=== PATIENT | female | born 1985 | race Caucasian/White ===

== ENCOUNTER 2018-07-12 12:13 | Emergency (ER) | payer MEDICAID | END 2018-07-12 17:22 | disposition home or self-care (01) | LOC: FTE 12:13 | DX: O99.512 Diseases of the respiratory system complicating pregnancy, second trimester (principal); J01.90 Acute sinusitis, unspecified; Z3A.28 28 weeks gestation of pregnancy | CPT/HCPCS: 99283; Z7502 ==

== ENCOUNTER 2018-07-12 12:55 | Outpatient (CLI) | payer MEDICAID | END 2018-07-12 15:00 | disposition home or self-care (01) | LOC: OBT 12:55 → L-D 12:55 → OBT 15:00 | DX: O26.893 Other specified pregnancy related conditions, third trimester (principal); R05 Cough; R09.81 Nasal congestion; K08.89 Other specified disorders of teeth and supporting structures; Z3A.28 28 weeks gestation of pregnancy | CPT/HCPCS: 76815 ==

== ENCOUNTER 2018-09-21 17:21 | Inpatient (IN) | payer MEDICAID ==
[2018-09-21] MEDS ORDERED: CARBOPROST 250 MCG INJ IM (17:30)
[2018-09-21] MEDS ORDERED: MISOPROSTOL 200 MCG TAB PR (17:30)
[2018-09-21] MEDS ORDERED: METHYLERGONOVINE 0.2 MG INJ IM (17:30)
[2018-09-21] MEDS: LACTATED RINGER'S 1,000 ML IV ×2 (18:16→19:11)
[2018-09-21 18:45] LABS: ADD MAN DIFF? NO
[2018-09-21 18:49] LABS: BASOPHILS % 0.4 % (0.0-2.0); EOSINOPHILS % 0.3 % (0.0-7.0); HEMATOCRIT 39.8 % (37.0-47.0); HEMOGLOBIN 13.4 g/dl (12.0-16.0); LYMPHOCYTES # 1.9 10^3/ul (0.8-2.9); LYMPHOCYTES % 25.9 % (15.0-51.0); MEAN CORPUSCULAR HEMOGLOBIN 31.9 pg (29.0-33.0); MEAN CORPUSCULAR HGB CONC 33.7 g/dl (32.0-37.0); MEAN CORPUSCULAR VOLUME 94.8 fl (82.0-101.0); MEAN PLATELET VOLUME 12.5 fl (7.4-10.4); MONOCYTE # 0.5 10^3/ul (0.3-0.9); MONOCYTES % 6.4 % (0.0-11.0); NEUTROPHIL # 4.9 10^3/ul (1.6-7.5); NEUTROPHILS % 66.5 % (39.0-77.0); PLATELET COUNT 172 10^3/UL (140-415); RED CELL DISTRIBUTION WIDTH 13.7 % (11.5-14.5)
[2018-09-21 18:49] LABS: WHITE BLOOD COUNT 7.4 10^3/ul (4.8-10.8)
[2018-09-21 19:08] LABS: PROTIME 12.3 Sec (11.9-14.9)
[2018-09-21 19:09] LABS: PARTIAL THROMBOPLASTIN TIME 27.7 Sec (23.0-35.0)
[2018-09-21] MEDS ORDERED: OXYTOCIN 30 UNITS/LR 500 ML IV (20:40)
[2018-09-21] MEDS ORDERED: METOCLOPRAMIDE 10 MG INJ (20:41)
[2018-09-21] MEDS ORDERED: OXYTOCIN 10 UNIT INJ ×2 (20:41→20:53)
[2018-09-21] MEDS ORDERED: ONDANSETRON 4 MG INJ (20:41)
[2018-09-21] MEDS ORDERED: morphine SULFATE/PF (10 MG/10 ML) INJ (20:41)
[2018-09-21] MEDS ORDERED: EPHEDrine 25 MG/5 ML SYG (20:53)
[2018-09-21] MEDS ORDERED: NALOXONE (0.4 MG/ML) INJ IV (23:00)
[2018-09-21] MEDS ORDERED: EPHEDrine SULFATE 50 MG/5 ML SYG IV (23:00)
[2018-09-21] MEDS ORDERED: morphine 2 MG INJ IV ×2 (23:00)
[2018-09-21] MEDS ORDERED: ONDANSETRON 4 MG INJ IV (23:00)
[2018-09-21] MEDS ORDERED: DIPHENHYDRAMINE 50 MG INJ IV (23:00)
[2018-09-21] MEDS: morphine SULFATE/PF (10 MG/10 ML) INJ SPINAL (23:06)
[2018-09-21] MEDS: CEFAZOLIN 2 GM/50 ML (PMX) 50 ML IVPB (23:06)
[2018-09-21] MEDS: KETOROLAC 30 MG INJ IV (23:12)
[2018-09-21] MEDS: OXYTOCIN 30 UNITS/LR 500 ML IV (23:48)
[2018-09-22] MEDS: DEXTROSE 5%-LR 1,000 ML IV ×3 (00:15→16:15)
[2018-09-22] MEDS ORDERED: CARBOPROST 250 MCG INJ IM (00:30)
[2018-09-22] MEDS ORDERED: METHYLERGONOVINE 0.2 MG INJ IM (00:30)
[2018-09-22] MEDS ORDERED: METHYLERGONOVINE 0.2 MG TAB PO (00:30)
[2018-09-22] MEDS ORDERED: LANOLIN HPA 1 PKT TOP (00:30)
[2018-09-22] MEDS ORDERED: MISOPROSTOL 200 MCG TAB PR (00:30)
[2018-09-22] MEDS ORDERED: OXYTOCIN 30 UNITS/LR 500 ML IV (00:30)
[2018-09-22] MEDS: OXYTOCIN 30 UNITS/LR 500 ML IV (00:59)
[2018-09-22] MEDS: KETOROLAC 30 MG INJ IV ×3 (05:52→20:06)
[2018-09-22 07:51] LABS: ADD MAN DIFF? NO
[2018-09-22 08:01] LABS: WHITE BLOOD COUNT 8.4 10^3/ul (4.8-10.8)
[2018-09-22 08:01] LABS: BASOPHILS % 0.2 % (0.0-2.0); EOSINOPHILS % 0.2 % (0.0-7.0); HEMATOCRIT 35.7 % (37.0-47.0); HEMOGLOBIN 11.8 g/dl (12.0-16.0); LYMPHOCYTES # 1.3 10^3/ul (0.8-2.9); LYMPHOCYTES % 15.9 % (15.0-51.0); MEAN CORPUSCULAR HEMOGLOBIN 31.3 pg (29.0-33.0); MEAN CORPUSCULAR HGB CONC 33.1 g/dl (32.0-37.0); MEAN CORPUSCULAR VOLUME 94.7 fl (82.0-101.0); MONOCYTE # 0.5 10^3/ul (0.3-0.9); MONOCYTES % 5.6 % (0.0-11.0); NEUTROPHIL # 6.6 10^3/ul (1.6-7.5); NEUTROPHILS % 77.6 % (39.0-77.0); PLATELET COUNT 147 10^3/UL (140-415); RED BLOOD COUNT 3.77 10^6/ul (4.20-5.40); RED CELL DISTRIBUTION WIDTH 13.8 % (11.5-14.5)
[2018-09-22] MEDS: SENNA/DOCUSATE NA (8.6MG/50MG) TAB PO ×2 (09:23→20:07)
[2018-09-22] MEDS ORDERED: DIPHTH/TET/ACEL PERTUSS (ADULT) 0.5 ML VIAL IM* (11:00)
[2018-09-22] MEDS: LACTATED RINGER'S 1,000 ML IV ×2 (12:02→16:50)
[2018-09-22] MEDS: HYDROCODONE/APAP (5/325) TAB GTB ×2 (14:00→22:37)
[2018-09-22 15:03] LABS: RAPID PLASMA REAGIN NONREACTIVE (NR)
[2018-09-22 15:05] LABS: RAPID PLASMA REAGIN NONREACTIVE (NR)
[2018-09-23] MEDS: DEXTROSE 5%-LR 1,000 ML IV (00:15)
[2018-09-23] MEDS: LACTATED RINGER'S 1,000 ML IV (01:29)
[2018-09-23] MEDS: HYDROCODONE/APAP (5/325) TAB GTB ×3 (05:05→21:59)
[2018-09-23] MEDS: IBUPROFEN 800 MG TAB PO ×3 (05:06→21:59)
[2018-09-23] MEDS: SENNA/DOCUSATE NA (8.6MG/50MG) TAB PO ×2 (08:16→20:52)
[2018-09-23] MEDS: HYDROCODONE/APAP (5/325) TAB NGT (08:17)
[2018-09-23] MEDS: DIPHTH/TET/ACEL PERTUSS (ADULT) 0.5 ML VIAL IM* (10:36)
[2018-09-23] MEDS: MEASLES,MUMPS,RUBELLA VACCINE INJ SC* (10:37)
[2018-09-23] MEDS: MAGNESIUM HYDROXIDE 30ML CUP PO (20:52)
[2018-09-24] MEDS: HYDROCODONE/APAP (5/325) TAB GTB ×2 (05:22→13:14)
[2018-09-24] MEDS: IBUPROFEN 800 MG TAB PO ×2 (05:23→13:14)
[2018-09-24] MEDS: SENNA/DOCUSATE NA (8.6MG/50MG) TAB PO (09:16)
[2018-09-24] MEDS: HYDROCODONE/APAP (5/325) TAB NGT (11:15)
== END 2018-09-24 18:50 | disposition home or self-care (01) | DRG 788 ==
LOC: PP1 09-22 00:24 → L-D 17:21
PROVIDERS: Obstetrics & Gynecology
PROC: 10D00Z1 Extraction of Products of Conception, Low, Open Approach (ICD-10-PCS; principal; 2018-09-21 19:30)
DX: O34.211 Maternal care for low transverse scar from previous cesarean delivery (principal); Z3A.39 39 weeks gestation of pregnancy; Z37.0 Single live birth
CPT/HCPCS: 85025; 85610; 85730; 86592; 86850; 86900; 86901; 99464